=== PATIENT | male | born 1965 | race Caucasian/White ===

== ENCOUNTER 2016-11-18 11:26 | Day surgery (SDC) | payer BC ==
[2016-11-18] MEDS ORDERED: FENTANYL PF 100MCG/2ML VIAL IV ONE (14:00)
[2016-11-18] MEDS ORDERED: LIDOCAINE 2% MDV (20MG/ML) 20ML VIAL IV ONE (14:00)
[2016-11-18] MEDS ORDERED: PROPOFOL 10 MG/ML VIAL IV ONE (14:00)
--- NOTE | 2016-11-23 10:30 | Operative Note ---
DATE OF SURGERY: REQUESTING PHYSICIAN: Toyn Veronica D.O. POSTOPERATIVE DIAGNOSES: 1. Distal esophagitis. 2. Mild gastritis. 3. Normal duodenum. OPERATION: ESOPHAGOGASTRODUODENOSCOPY. Surgeon: Alma Delia Whitman M.D. Indication for Procedure: This is a 51-year-old male with history of gastroesophageal reflux disease who presented for esophagogastroduodenoscopy . Sedation: Sedation was per Anesthesia. Pulse oximetry was monitored throughout the duration of the procedure to maintain O2 saturation of 90% or greater. Supplemental oxygen was administered via nasal cannula. Cardiac and vital signs were monitored throughout the duration of the procedure, and they were stable. Description of the procedure of esophagogastroduodenoscopy and risks and benefits of the procedure including the risk of bleeding and perforation, among others, were explained to the patient who voiced understanding and consented to have the procedure done. Physical exam was performed, and the patient was found stable for sedation. PROCEDURE: The patient was placed in the left lateral position and sedation was initiated. A plastic bite block was inserted into the oral cavity. An Olympus GIF-180 gastroscope was introduced into the oral cavity and was advanced to the proximal esophagus without difficulty. The esophageal mucosa was carefully examined upon introduction of the gastroscope. The proximal and mid esophageal mucosa appeared normal. In the distal esophagus there was mild erythema but no ulcers were noted. The gastroscope was then advanced to the stomach and serial examinations of the stomach revealed diffuse erythema along the gastric body and antrum but no ulcers were noted. The gastroscope was then advanced into the descending duodenum without difficulty. There was mild erythema of the duodenal bulb but descending duodenal mucosa appeared normal. The gastroscope was then withdrawn through the stomach and retroflexion was performed. There were no other lesions noted. The gastroscope was then withdrawn while carefully examining the gastric and esophageal mucosa and no other lesions noted. Multiple duodenal, gastric and distal esophageal biopsies were obtained. He remained with stable vital signs and was transferred to the Recovery Room. PLAN AND RECOMMENDATIONS: 1. The patient is to continue on his proton pump inhibitors. 2. He is to have a screening colonoscopy given his age. 3. I will be happy to see him back as needed. As always, thank you for allowing me to participate in the care of your patient. Alma Delia Whitman MD CC: Cesia HOLCOMB
== END 2016-11-18 13:10 | disposition home or self-care (01) ==
LOC: HOP 11:26
PROVIDERS: ATTEND Internal Medicine Gastroenterology
DX: K21.0 Gastro-esophageal reflux disease with esophagitis (principal); K29.30 Chronic superficial gastritis without bleeding; K22.70 Barrett's esophagus without dysplasia
CPT/HCPCS: 43239; 00740; J3010

== ENCOUNTER 2016-11-25 10:32 | Day surgery (SDC) | payer BC ==
[2016-11-25] MEDS ORDERED: LIDOCAINE 2% MDV (20MG/ML) 20ML VIAL IV ONE (14:00)
[2016-11-25] MEDS ORDERED: MIDAZOLAM HCL 2MG/2ML VIAL IV ONE (14:00)
[2016-11-25] MEDS ORDERED: PROPOFOL 10 MG/ML VIAL IV ONE (14:00)
--- NOTE | 2016-11-28 08:34 | Operative Note ---
DATE OF SURGERY: 11/25/2016 SURGEON: Alma Delia Whitman MD OPERATION: COLONOSCOPY. INDICATIONS: This is a 51-year-old male with average risk for colorectal cancer who presented for screening colonoscopy. POSTOPERATIVE DIAGNOSES: 1. A 3 mm sessile polyp in the cecum that was removed by cold biopsy forceps. 2. Otherwise normal colon. ANESTHESIA: Sedation is per Anesthesia. Pulse oximetry was monitored throughout the procedure to maintain O2 saturation of 90% or greater. Supplemental oxygen was administered via nasal cannula. Cardiac and vital signs were monitored throughout the duration of the procedure, and they were stable. The procedure of colonoscopy and risks and alternatives of the procedure, including the risk of bleeding and perforation, among others, were explained to the patient who voiced understanding and agreed to have the procedure done. Physical examination was performed, and the patient was found stable for sedation. PROCEDURE: The patient was placed in the left lateral position. Sedation was initiated. A digital rectal exam was performed and showed some mild external hemorrhoids with no palpable rectal masses. An Olympus PCF-180AL colonoscope was then inserted into the rectum under direct visualization. It was advanced to the cecum without difficulty. The ileocecal valve and appendiceal orifice were identified and photographed. The colonic mucosa was carefully examined upon introduction of the colonoscope. In the cecum was a 3 mm sessile polyp that was noted and was removed by cold biopsy forceps. There were no other lesions noted. The colonoscope was then withdrawn while carefully examining the colonic mucosal surfaces. No other lesions were noted. In the rectum, retroflexion was performed and grade 1 internal hemorrhoids were noted. The colonoscope was then withdrawn and the procedure was terminated. The patient tolerated the procedure well without any immediate complications. He remained with stable vital signs and was transferred to the recovery room. RECOMMENDATIONS: 1. The patient should be on a high-fiber diet. 2. The patient is to have a repeat colonoscopy for surveillance in 5 or 10 years depending on the histology of the polyp. Thank you for allowing me to participate in the care of your patient. Alma Delia Whitman MD CC: Cesia HOLCOMB
== END 2016-11-25 12:41 | disposition home or self-care (01) ==
LOC: HOP 10:32
PROVIDERS: ATTEND Internal Medicine Gastroenterology
DX: Z12.11 Encounter for screening for malignant neoplasm of colon (principal); K63.5 Polyp of colon